=== PATIENT | male | born 1975 | race African-American/Black ===

== ENCOUNTER 2017-03-06 20:03 | Emergency (ER) | payer OTHER ==
[~2017-03-06 20:03] MED LIST: IBUPROFEN800 MG PO
== END 2017-03-06 22:30 | disposition home or self-care (01) ==
LOC: CED 20:03
DX: S39.012A Strain of muscle, fascia and tendon of lower back, initial encounter (principal); E11.9 Type 2 diabetes mellitus without complications; F17.200 Nicotine dependence, unspecified, uncomplicated; Z88.1 Allergy status to other antibiotic agents; X50.9XXA Other and unspecified overexertion or strenuous movements or postures, initial encounter; Y92.9 Unspecified place or not applicable
CPT/HCPCS: 96372; 99283; J1885